=== PATIENT | male | born 1990 | race Caucasian/White ===

== ENCOUNTER 2024-01-31 11:32 | Emergency (ER) | payer BC, SELFPAY ==
[2024-01-31 11:49] VITALS: BP 144/94; PULSE 75; RESP 16; TEMP 36.5; O2SAT 99; BMI 40.4
--- NOTE | 2024-01-31 12:03 | CRLHL7_ITS ---
For Patients: As a result of the Cures Act, medical imaging exams and procedure reports are released immediately into your electronic medical record. You may view this report before your referring provider. If you have questions, please contact your health care provider. INDICATION: Back pain TECHNIQUE: Two views lumbar spine FINDINGS/IMPRESSION: Normal alignment. No acute fracture or acute osseous abnormalities are visualized. Normal height and alignment of the vertebral bodies no spondylolisthesis or spondylolysis. No significant degenerative change. Dictated by Jennifer Valdez MD @ 01/31/2024 1:12:43 PM (Electronically Signed)
--- NOTE | 2024-01-31 12:04 | ED_ITS ---
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 Radiates up to little bit and thoracic spine and up to her shoulder she reports. He is a non-insulin diabetic he is on Ozempic. He does not have a primary care doctor locally. He has had no fever chills weight loss. He has had a slight cough and runny nose, he was exposed to COVID. He is not short of breath. He denies night sweats rigors bowel or bladder incontinence or lower extremity symptoms. He has noticed no strength deficit in his legs. Related Data Previous Rx's ?Medication ?Instructions ?Recorded indomethacin 25 mg capsule 25 mg PO TID #20 caps 01/31/24 Allergies Allergy/AdvReac Type Severity Reaction Status Date / Time amoxicillin AdvReac Intermediate Hives Verified 01/31/24 11:49 erythromycin base AdvReac Intermediate Hives Verified 01/31/24 11:49 [From Pediazole] Penicillins AdvReac Intermediate Hives Verified 01/31/24 11:49 sulfisoxazole AdvReac Intermediate Hives Verified 01/31/24 11:49 [From Pediazole] cefaclor [From Ceclor] AdvReac Hives Verified 01/31/24 11:49 Review of Systems Status of ROS: Reports: 6 or more systems reviewed and unremarkable except as noted in History and below PFSH PFS Social History Smoking Status: Never smoker Do you use any of these nicotine containing products: Smokeless Tobacco How often do you have a drink containing alcohol: never AUDIT-C Alcohol total score: 0 Non-prescribed substance use: denies use Exam Narrative: Exam Narrative: Objective patient ambulates normally he has got an elevated BMI His back exam shows no warmth erythema, no tenderness to palpation. He denies any leg symptoms He is ambulatory without difficulty He describes some mild rhinorrhea. He denies significant coughing Const: Vital Signs, click to edit/add: Vital Signs - 24 hr 01/31/24 11:49 Temperature 97.7 F Pulse Rate [Pulse Oximeter] 75 Respiratory Rate 16 Blood Pressure [Ri ght Upper Arm] 144/94 H Pulse Oximetry 99 Oxygen Delivery Me thod Room Air Course Vital Signs Vital signs: Initial Vital Signs Temperature 97.7 F 01/31/24 11:49 Temperature Source Temporal Artery Scan 01/31/24 11:49 Pulse Rate 75 01/31/24 11:49 Respiratory Rate 16 01/31/24 11:49 Blood Pressure 144/94 H 01/31/24 11:49 Blood Pressure Mean 110 H 01/31/24 11:49 Blood Pressure Position Sitting 01/31/24 11:49 Pulse Oximetry 99 01/31/24 11:49 Oxygen Delivery Method Room Air 01/31/24 11:49 Vital Signs Temperature 97.7 F 01/31/24 11:49 Pulse Rate 75 01/31/24 11:49 Respiratory Rate 16 01/31/24 11:49 Blood Pressure 144/94 H 01/31/24 11:49 Pulse Oximetry 99 01/31/24 11:49 Oxygen Delivery Method Room Air 01/31/24 11:49 Temperature 97.7 F 01/31/24 11:49 Pulse Rate 75 01/31/24 11:49 Respiratory Rate 16 01/31/24 11:49 Blood Pressure 144/94 H 01/31/24 11:49 Pulse Oximetry 99 01/31/24 11:49 Oxygen Delivery Method Room Air 01/31/24 11:49 Medical Decision Making MDM Narrative Medical decision making narrative: 33-year-old male non-insulin diabetic with low back pain over a few weeks, no evidence of radicular symptoms. At this time I think a plain x-ray be helpful, referral to a primary care doctor to get into some physical therapy. He can take some anti-inflammatory medicine or Tylenol as needed, will also check a viral studies test of his nose given that he has been exposed to COVID. Review his x-rays return. Addendum 12:46 p.m.: The patient's x-ray by my review of his lumbar spine look largely unremarkable, has some facet arthropathy, got pretty good disc space preservation. Normal alignment. His viral studies are pending. I think we can discharge him home on indomethacin 25 mg t.i.d. over the next 7 days. Cautioned about GI side effects, to take with meals. Would recommend he get an appointment with a primary care doctor locally to get into fits some physical therapy. He was comfortable this would also recommend icing on his back perhaps 5-10 minutes 3 to 5 times a day. Lab Data Labs: Lab Results 01/31/24 Range/Units 12:10 SARS-CoV-2 (PCR) Negative SARS-CoV-2 (Negative) Influenza Type A (PCR) Negative PCR FLU A (Negative) Influenza Type B (PCR) Negative PCR FLU B (Negative) RSV (PCR) Negative PCR RSV (Negative) Discharge Plan Discharge Clinical Impression: Strain of lumbar region, Rhinorrhea Patient Disposition: Home, Self-Care Condition: Stable Additional Instructions: Recommend no heavy lifting or repetitive bending, Indocin 25 t.i.d. x7 days, take with food, stop if it bothers her stomach. Recommend you see your regular doctor within the next few days to discuss physical therapy and other treatment modalities for your back. Return if problems or concerns. Please give the patient primary care's number at the clinic in [place]. Activity Level: Light activity Discharge Diet: Diabetic Prescriptions: New indomethacin 25 mg capsule 25 mg PO TID Qty: 20 0RF Rx Instructions: administer with food or milk Stand Alone Forms: [facility] Info Instructions
[2024-01-31 12:52] LABS: PCR FLU A Negative PCR FLU A (Negative); PCR FLU B Negative PCR FLU B (Negative); PCR RSV Negative PCR RSV (Negative); SARS PCR* Negative SARS-CoV-2 (Negative)
== END 2024-01-31 12:55 | disposition home or self-care (01) ==
PROVIDERS: Emergency Provider Family Medicine
DX: S39.012A Strain of muscle, fascia and tendon of lower back, initial encounter (principal); J34.89 Other specified disorders of nose and nasal sinuses
CPT/HCPCS: 72100; 87631; 99284

== ENCOUNTER 2024-04-08 12:47 | Outpatient (CLI) | payer BC, SELFPAY ==
--- NOTE | 2024-04-08 13:00 | CRLHL7_ITS ---
For Patients: As a result of the Century Cures Act, medical imaging exams and procedure reports are released immediately into your electronic medical record. You may view this report before your referring provider. If you have questions, please contact your health care provider. INDICATION: Mid back pain. Lifting weights. TECHNIQUE: Sagittal T1 sagittal and axial T2 and sagittal STIR images were obtained. FINDINGS: Sagittal alignment within normal limits. No evidence of acute compression fracture. Alignment is normal. Shallow posterior disc bulges/protrusions are noted at the T2-3 and T3-4 levels. There is associated mild ventral thecal sac deformity without compression of the spinal cord nor stenosis of the spinal canal or neural foramen. Small incidental osseous hemangioma at T6 as doubtful significance. Thoracic spinal cord normal in morphology and signal intensity. No paraspinal or epidural hematoma. IMPRESSION: Mild posterior disc bulges/protrusions in the upper thoracic spine without central or lateral stenosis. Dictated by Wellington Strong MD @ 04/10/2024 6:51:45 AM (Electronically Signed)
--- NOTE | 2024-04-08 13:45 | CRLHL7_ITS ---
For Patients: As a result of the Cures Act, medical imaging exams and procedure reports are released immediately into your electronic medical record. You may view this report before your referring provider. If you have questions, please contact your health care provider. INDICATION: Low back pain. TECHNIQUE: Sagittal and axial T1, sagittal axial T2 sagittal STIR images. COMPARISON: Lumbar spine radiographs dated 01/23/2024. FINDINGS: Sagittal alignment within normal limits. L5 is a transitional segment partially sacralized on right no acute compression fracture. No paraspinal or epidural hematoma. At L1-2 shallow left paracentral posterior disc protrusion causes mild thecal sac deformity without impingement of the conus medullaris slight displacement of traversing left L2 nerve root. The neural foramen adequately patent. At L2-3 normal disc height and disc hydration without disc herniation or stenosis. At L3-4 degenerative disc desiccation. Shallow right paracentral disc protrusion causes mild thecal sac deformity without stenosis of the spinal canal or neural foramen. At L4-5 degenerative disc desiccation. Shallow central posterior disc protrusion extends to the right of midline there is deformity of the thecal sac slight displacement of traversing right greater than left L5 nerve roots. Neural foramen are adequately patent. At L5-S1 degenerative disc desiccation shallow central disc protrusion indents ventral epidural fat and contacts but does not compress the traversing S1 nerve roots the neural foramen are adequately patent. IMPRESSION: 1. Multilevel lumbar disc degeneration as described in detail above. Transitional lumbosacral segment (L5) partially sacralized on the right. 2. At L4-5, shallow central disc protrusion with slight displacement of traversing right greater than left L5 nerve roots. 3. Smaller disc protrusions also noted at L5-S1, L3-4 and L1-2 without stenosis. Dictated by Wellington Strong MD @ 04/10/2024 6:57:18 AM (Electronically Signed)
== END 2024-04-08 12:48 | disposition home or self-care (01) ==
LOC: MRI 12:48
PROVIDERS: PCP Internal Medicine; Visit Provider Internal Medicine
DX: M54.9 Dorsalgia, unspecified (principal); M51.24 Other intervertebral disc displacement, thoracic region; M51.369 Other intervertebral disc degeneration, lumbar region without mention of lumbar back pain or lower extremity pain; M51.26 Other intervertebral disc displacement, lumbar region; S39.92XA Unspecified injury of lower back, initial encounter
CPT/HCPCS: 72146; 72148

== ENCOUNTER 2024-05-22 11:07 | Emergency (ER) | payer BC, SELFPAY ==
--- OUTSIDE RECORDS SUMMARY | 2024-05-22 11:09 | XMS_ITS | Clinical Summary ---
Author Organization [facility] Address [place], [place] [address] Care Team Providers Care Home Health Clinical Supervisor Name Role Phone Nitesh Snider MD Primary Care Provider [phone] Allergies Active Allergy Reactions Criticality Noted Date Comments Amoxicillin Rash 07/29/2005 Cefaclor Hives 07/29/2005 Erythromycin-Sulfisoxazole Rash 6 Penicillins Rash 07/29/2005 Medications FLUOXETINE 20 MG CAP 20 mg Oral EVERY MORNING 30 0 08/02/2005 Active FLUOXETINE 20 MG CAP take 1 capsule (20mg) by oral route once daily in the morning 30 0 08/02/2005 Active Social History Tobacco Use Types Packs/Day Years Used Date Smoking Tobacco: Never Assessed Sex and Gender Information Value Date Recorded Sex Assigned at Not on file Legal Sex Male 7:13 AM RESPIRATORY MANAGER Gender Identity Not on file Sexual Orientation Not on file Obstetrics History Last Filed Vital Signs Vital Sign Reading Time Taken Comments Blood Pressure 131/61 08/02/2005 5:00 PM RESPIRATORY MANAGER Pulse 80 08/02/2005 5:00 PM RESPIRATORY MANAGER Temperature 36.5 C (97.7 F) 08/02/2005 5:00 PM RESPIRATORY MANAGER Respiratory Rate 20 07/30/2005 5:00 AM RESPIRATORY MANAGER Oxygen Saturation - - Inhaled Oxygen Concentration - - Weight 161 kg (355 lb) 07/29/2005 7:56 PM RESPIRATORY MANAGER Height 198.1 cm (6' 6) 07/29/2005 7:56 PM RESPIRATORY MANAGER Body Mass Index 41.02 07/29/2005 7:56 PM RESPIRATORY MANAGER Plan of Treatment Upcoming Encounters Date Type Department Care Team (Late st Contact Info) Description 07/08/2024 3:00 PM RESPIRATORY MANAGER Office Visit [address] [place] [address] Luis Davidson MD [address] [place] [address] Health Maintenance Due Date Last Done Comments Tdap 12/07/1999 Depression screening for age 12+ 2000 HIV for age 15-65 12/07/2003 BMI (ht and wt on same day) for age 18+ 2006 Hepatitis C screening for ag e 18-79 2006 Tetanus booster 2008 Lipids for age 35-44 12/07/2023 COVID-19 vaccine series (2023- season) 2024 Influenza for age 9-49 01/04/2024 Pneumococcal series for age 6-49 Aged Out No longer eligible based on patient's age to complete this topic Insurance [employer] [place] [employer] [place] Advance Directives * Full Code (Latest Code Status on File) Date Activated Date Inactivated Comments 07/29/2005 8:26 PM 08/02/2005 7:24 PM Care Teams Home Health Clinical Supervisor Relationship Specialty Start Date End Date Nitesh Snider MD [address] [place] [address] PCP - General Internal Medicine 04/14/24
[2024-05-22 11:11] VITALS: BP 132/79; PULSE 76; RESP 18; TEMP 36.6; O2SAT 96; BMI 40.8
--- NOTE | 2024-05-22 11:21 | ED_ITS ---
HPI - Back Pain/Injury General Chief Complaint: Back Injury/Pain Stated Complaint: Back pain Time Seen by Provider: 05/22/24 11:08 History of Present Illness HPI Narrative: Patient is a 33-year-old gentleman who is my primary care patient comes emergency room today with back pain. He has had chronic back pain and he has seen the back clinic and recently had an MRI of both his thoracic and lumbar spine. He has mild multilevel disease which is been chronic and fairly stable. He does well with his physical therapy but is not able to keep up with the pain currently on Tylenol and Motrin. He does have diabetes which is reasonably well controlled. He has had no chest pain no shortness a breath orthopnea no PND no bowel or bladder symptoms. The pain is in the upper thoracic region where it has been previously as well as in the low lumbar region. No radiculopathy noted no muscle weakness. Related Data Previous Rx's ?Medication ?Instructions ?Recorded bupropion HCl 300 mg 24 hr tablet, 300 mg PO QAM #90 tabs 02/11/24 extended release (Wellbutrin XL) escitalopram oxalate 20 mg tablet 20 mg PO QDAY #90 tabs 02/11/24 lisinopril 10 mg tablet 10 mg PO QDAY #90 tabs 02/11/24 semaglutide 1 mg/dose (4 mg/3 mL) 1 mg (0.75 mL) subcut QWEEK #3 mL 02/25/24 subcutaneous pen injector (Ozempic) hydrocodone 5 mg-acetaminophen 325 1 tab PO Q8H PRN pain #30 tabs 05/22/24 mg tablet prednisone 20 mg tablet 20 mg PO BID #10 tabs 05/22/24 Allergies Allergy/AdvReac Type Severity Reaction Status Date / Time amoxicillin AdvReac Intermediate Hives Verified 05/22/24 11:11 erythromycin base (From AdvReac Intermediate Hives Verified 05/22/24 11:11 Pediazole) Penicillins AdvReac Intermediate Hives Verified 05/22/24 11:11 sulfisoxazole (From AdvReac Intermediate Hives Verified 05/22/24 11:11 Pediazole) cefaclor (From Ceclor) AdvReac Hives Verified 05/22/24 11:11 Review of Systems Status of ROS: Reports: 10 or more systems reviewed and unremarkable except as noted in History and below PFSH [facility] Medical History Diabetes mellitus ?E11.9 - Type 2 diabetes mellitus without complications (ICD-10) Back injury ?S39.92XA - Unspecified injury of lower back, initial encounter (ICD-10) Social History What is your current living situation?: I presently have a place to live Problems where you live: no known problems In past 12 months, lack of transportation kept you from medical appts, meetings, work, or getting things needed for daily living: no In the past 12 mos, have been you worried that your food would run out before you had money to buy more?: sometimes true In the past 12 mos, the food you bought just didn't last and you didn't have money to buy more?: sometimes true Smoking Status: Never smoker Do you use any of these nicotine containing products: Smokeless Tobacco How often do you have a drink containing alcohol: never AUDIT-C Alcohol total score: 0 Non-prescribed substance use: denies use How often does anyone, including family, friends and others, physically hurt you : never How often does anyone, including family, friends and others, insult or talk down to you: never How often does anyone, including family, friends and others, threaten you with harm: never How often does anyone, including family, friends and others, scream or curse at you: never Health Related Social Needs: food insecurity (Z59.41) Exam Narrative: Exam Narrative: EXAM GENERAL: Patient appears comfortable and well. EYES: No scleral icterus. ENT: Tympanic membranes and oropharynx normal. THYROID: no thyroid nodules or thyromegaly. LYMPH: No supraclavicular or cervical lymphadenopathy. SKIN: Visible skin seen during exam normal or with benign process only. EXT: No dependent lower extremity pedal edema. HEART: Regular rate and rhythm with no murmurs, rubs, or gallops. LUNGS: Clear to auscultation bilaterally with no crackles or wheezes. ABD: Soft, non tender, non distended. PSYCH: Good eye contact, speech is not pressured. No bony abnormalities normal range of motion. Const: Vital Signs, click to edit/add: Vital Signs - 24 hr 05/22/24 11:11 Temperature 97.8 F Pulse Rate [Pulse Oximeter] 76 Respiratory Rate 18 Blood Pressure [Ri ght Upper Arm] 132/79 Pulse Oximetry 96 Oxygen Delivery Me thod Room Air Course Course ED Course: Patient seen and examined. Patient is well known to me as he is my primary care patient. I did review his MRI and at this time I did repeat a course of prednisone as well as Vicodin and he will be in close follow-up with me in the office. I have made arrangements to send him to [facility] as well. Vital Signs Vital signs: Initial Vital Signs Temperature 97.8 F 05/22/24 11:11 Temperature Source Temporal Artery Scan 05/22/24 11:11 Pulse Rate 76 05/22/24 11:11 Respiratory Rate 18 05/22/24 11:11 Blood Pressure 132/79 05/22/24 11:11 Blood Pressure Mean 96 05/22/24 11:11 Blood Pressure Position Sitting 05/22/24 11:11 Pulse Oximetry 96 05/22/24 11:11 Oxygen Delivery Method Room Air 05/22/24 11:11 Vital Signs Temperature 97.8 F 05/22/24 11:11 Pulse Rate 76 05/22/24 11:11 Respiratory Rate 18 05/22/24 11:11 Blood Pressure 132/79 05/22/24 11:11 Pulse Oximetry 96 05/22/24 11:11 Oxygen Delivery Method Room Air 05/22/24 11:11 Temperature 97.8 F 05/22/24 11:11 Pulse Rate 76 05/22/24 11:11 Respiratory Rate 18 05/22/24 11:11 Blood Pressure 132/79 05/22/24 11:11 Pulse Oximetry 96 05/22/24 11:11 Oxygen Delivery Method Room Air 05/22/24 11:11 Discharge Plan Discharge Clinical Impression: Back pain Patient Disposition: Home, Self-Care Condition: Stable Instructions: Back Pain (ED) Additional Instructions: Ice Prednisone as directed [place] as directed Advanced activity as directed Follow-up Dr. Snider by phone this coming week. Activity Level: No Restrictions Discharge Diet: Regular Prescriptions: New prednisone 20 mg tablet 20 mg PO BID Qty: 10 0RF hydrocodone-acetaminophen 5-325 mg tablet 1 tab PO Q8H PRN (Reason: pain) Qty: 30 0RF No Action escitalopram oxalate 20 mg tablet 20 mg PO QDAY Qty: 90 0RF lisinopril 10 mg tablet 10 mg PO QDAY Qty: 90 0RF bupropion HCl [Wellbutrin XL] 300 mg tablet extended release 24 hr 300 mg PO QAM Qty: 90 0RF Ozempic 1 mg/dose (4 mg/3 mL) pen injector 1 mg subcut QWEEK Qty: 3 0RF Follow Up/Referrals: Nitesh Snider MD [Primary Care Provider] - Stand Alone [facility]: [facility] Info Instructions
--- OUTSIDE RECORDS SUMMARY | 2024-05-22 11:35 | XMS_ITS | Continuity of Care Document ---
Author Name [email or web address] Address Unknown Organization Unknown Address Unknown Procedures FILTER APPLIED:Only known Procedures with Onset Date within the last 5 years Procedure Date Procedure Provider Additional Inform ation Status MI OFFICE/OUTPATIENT ESTABLISHED LOW MDM 20-29 MIN ([id number]) Completed Encounters FILTER APPLIED:Only known Encounters with Admission Date within the last 5 years Encounter Location Admission Discharge Billing Code [place] Department Supervisor Sergei joe Outpatient [facility] Outpatient [facility]
--- OUTSIDE RECORDS SUMMARY | 2024-05-22 11:35 | XMS_ITS | Clinical Summary ---
Author Organization [facility] Address [place], [place] [address] Care Team Providers Care Psychology Associate Name Role Phone Nitesh Snider MD Primary Care Provider Allergies Active Allergy Reactions Criticality Noted Date [...] on file Legal Sex Male 7:13 AM SUBMARINE OPERATOR Gender Identity Not on file Sexual Orientation Not on file Obstetrics History Last Filed Vital Signs Vital Sign Reading Time Taken Comments Blood Pressure 131/61 08/02/2005 5:00 PM SUBMARINE OPERATOR Pulse 80 08/02/2005 5:00 PM SUBMARINE OPERATOR Temperature 36.5 C (97.7 F) 08/02/2005 5:00 PM SUBMARINE OPERATOR Respiratory Rate 20 07/30/2005 5:00 AM SUBMARINE OPERATOR Oxygen Saturation - - Inhaled Oxygen Concentration - - Weight 161 kg (355 lb) 07/29/2005 7:56 PM SUBMARINE OPERATOR Height 198.1 cm (6' 6) 07/29/2005 7:56 PM SUBMARINE OPERATOR Body Mass Index 41.02 07/29/2005 7:56 PM SUBMARINE OPERATOR Plan of Treatment Upcoming Encounters Date Type Department Care Team (Late st Contact Info) Description 07/08/2024 3:00 PM SUBMARINE OPERATOR Office Visit [address] [place] [address] Luis Davidson MD [address] [place] [address] Health Maintenance Due Date Last Done Comments [...] patient's age to complete this topic Insurance [employer] [place] [employer] [place] Advance Directives * Full Code (Latest Code Status on File) Date Activated Date Inactivated Comments 07/29/2005 8:26 PM 08/02/2005 7:24 PM Care Teams Psychology Associate Relationship Specialty Start Date End Date Nitesh Snider MD [address] [place] [address] PCP - General Internal Medicine 04/14/24
== END 2024-05-22 11:47 | disposition home or self-care (01) ==
LOC: ED 11:33
PROVIDERS: Emergency Provider Internal Medicine; PCP Internal Medicine
DX: M54.9 Dorsalgia, unspecified (principal)
CPT/HCPCS: 99283; 99284

== ENCOUNTER 2024-06-02 10:15 | Outpatient (RCR) | payer BC, SELFPAY | END 2024-08-09 14:07 | disposition home or self-care (01) | PROVIDERS: Visit Provider Internal Medicine | DX: S39.92XA Unspecified injury of lower back, initial encounter (principal); M54.50 Low back pain, unspecified; Z74.09 Other reduced mobility; M62.81 Muscle weakness (generalized); R29.3 Abnormal posture; Z51.89 Encounter for other specified aftercare | CPT/HCPCS: 97012; 97032; 97110; 97112; 97140; 97162; 97530 ==

== ENCOUNTER 2024-08-06 12:06 | Emergency (ER) | payer BC, SELFPAY ==
--- OUTSIDE RECORDS SUMMARY | 2024-08-06 12:08 | XMS_ITS | Clinical Summary ---
Author Organization [facility] Address [address] [place] [id number] Care Team Providers Care Levi Maker Name Role Phone Nitesh Snider MD Primary Care Provider [phone] Allergies Active Allergy Reactions Criticality Noted Date [...] on file Legal Sex Male 7:13 AM RETORT CONDENSER ATTENDANT Gender Identity Not on file Sexual Orientation Not on file Obstetrics History Last Filed Vital Signs Vital Sign Reading Time Taken Comments Blood Pressure 131/61 08/02/2005 5:00 PM RETORT CONDENSER ATTENDANT Pulse 80 08/02/2005 5:00 PM RETORT CONDENSER ATTENDANT Temperature 36.5 C (97.7 F) 08/02/2005 5:00 PM RETORT CONDENSER ATTENDANT Respiratory Rate 20 07/30/2005 5:00 AM RETORT CONDENSER ATTENDANT Oxygen Saturation - - Inhaled Oxygen Concentration - - Weight 161 kg (355 lb) 07/29/2005 7:56 PM RETORT CONDENSER ATTENDANT Height 198.1 cm (6' 6) 07/29/2005 7:56 PM RETORT CONDENSER ATTENDANT Body Mass Index 41.02 07/29/2005 7:56 PM RETORT CONDENSER ATTENDANT Plan of Treatment Health Maintenance Due Date Last Done Comments Tdap 12/07/1999 Depression screening for age 12+ 2000 HIV for age 15-65 12/07/2003 BMI (ht and wt on same day) for age 18+ 2006 Hepatitis C screening for ag e 18-79 2006 Tetanus booster 2008 Lipids for age 35-44 12/07/2023 COVID-19 vaccine series (2023- season) 2024 Influenza Vaccine (Season Ended) 2025 Pneumococcal series for age 6-49 Aged Out No longer eligible based on patient's age to complete this topic Insurance [employer] OF [place] [employer] OF [place] Advance Directives * Full Code (Latest Code Status on File) Date Activated Date Inactivated Comments 07/29/2005 8:26 PM 08/02/2005 7:24 PM Care Teams Levi Maker Relationship Specialty Start Date End Date Nitesh Snider MD [address] [place] [id number] PCP - General Internal Medicine 04/14/24
[2024-08-06 12:24] VITALS: BP 117/84; PULSE 113; RESP 18; TEMP 36.3; O2SAT 100; BMI 40.4
--- NOTE | 2024-08-06 12:36 | ED.GENADULT ---
HPI - General Adult General Chief complaint: Psychiatric Problem/Disorder <Nitesh Snider MD - Last Filed: 08/07/24 19:53> Stated complaint: Mental health <Nitesh Snider MD - Last Filed: 08/07/24 19:53> Time Seen by Provider: 08/06/24 12:12 <Nitesh Snider MD - Last Filed: 08/07/24 19:53> History of Present Illness HPI narrative: Patient is a 33-year-old gentleman well known to me who comes in today with several days of suicidal ideation. Patient has had history of suicidal ideation. He is not willing to share is planned. He has not been drinking or using any drugs. Patient has diabetes and is under reasonable control. He has had no recent injuries no head injuries no fevers no chills no chest pain no shortness of breath. He has not lost his job and his family status is unchanged. Patient otherwise has been in his usual state of health. He does not feel comfortable being at home as he feels like he has a risk to himself. <Nitesh Snider MD - Last Filed: 08/07/24 19:53> Related Data Home medications: Previous Rx's ?Medication ?Instructions ?Recorded bupropion HCl 300 mg 24 hr tablet, 300 mg PO QAM #90 tabs 02/11/24 extended release (Wellbutrin XL) hydrocodone 5 mg-acetaminophen 325 1 tab PO Q8H PRN pain #30 tabs 05/22/24 mg tablet prednisone 20 mg tablet 20 mg PO BID #10 tabs 05/22/24 escitalopram oxalate 20 mg tablet 20 mg PO QDAY #90 tabs 07/30/24 lisinopril 10 mg tablet 10 mg PO QDAY #90 tabs 07/30/24 semaglutide 1 mg/dose (4 mg/3 mL) 1 mg (0.75 mL) subcut QWEEK #3 mL 08/04/24 subcutaneous pen injector (Ozempic) <Nitesh Snider MD - Last Filed: 08/07/24 19:53> Allergies/adverse reactions: Allergies Allergy/AdvReac Type Severity Reaction Status Date / Time amoxicillin AdvReac Intermediate Hives Verified 05/22/24 11:36 erythromycin base (From AdvReac Intermediate Hives Verified 05/22/24 11:36 Pediazole) Penicillins AdvReac Intermediate Hives Verified 05/22/24 11:36 sulfisoxazole (From AdvReac Intermediate Hives Verified 05/22/24 11:36 Pediazole) cefaclor (From Ceclor) AdvReac Hives Verified 05/22/24 11:36 <Nitesh Snider MD - Last Filed: 08/07/24 19:53> Review of Systems Status of ROS: Reports: 10 or more systems reviewed and unremarkable except as noted in History and below <Nitesh Snider MD - Last Filed: 08/07/24 19:53> [facility] Medical History: Medical History Diabetes mellitus ?E11.9 - Type 2 diabetes mellitus without complications (ICD-10) Back injury ?S39.92XA - Unspecified injury of lower back, initial encounter (ICD-10) <Nitesh Snider MD - Last Filed: 08/07/24 19:53> Social History: Social History What is your current living situation?: I presently have a place to live Problems where you live: no known problems In past 12 months, lack of transportation kept you from medical appts, meetings, work, or getting things needed for daily living: no In the past 12 mos, have been you worried that your food would run out before you had money to buy more?: sometimes true In the past 12 mos, the food you bought just didn't last and you didn't have money to buy more?: sometimes true Smoking Status: Never smoker Do you use any of these nicotine containing products: Smokeless Tobacco Second hand tobacco smoke exposure: No How often do you have a drink containing alcohol: never AUDIT-C Alcohol total score: 0 Non-prescribed substance use: denies use How often does anyone, including family, friends and others, physically hurt you: never How often does anyone, including family, friends and others, insult or talk down to you: never How often does anyone, including family, friends and others, threaten you with harm: never How often does anyone, including family, friends and others, scream or curse at you: never Health Related Social Needs: food insecurity (Z59.41) <Nitesh Snider MD - Last Filed: 08/07/24 19:53> Exam Narrative: Exam Narrative: EXAM GENERAL: Patient appears tearful. EYES: No scleral icterus. ENT: Tympanic membranes and oropharynx normal. THYROID: no thyroid nodules or thyromegaly. LYMPH: No supraclavicular or cervical lymphadenopathy. SKIN: Visible skin seen during exam normal or with benign process only. EXT: No dependent lower extremity pedal edema. HEART: Regular rate and rhythm with no murmurs, rubs, or gallops. LUNGS: Clear to auscultation bilaterally with no crackles or wheezes. ABD: Soft, non tender, non distended. PSYCH: Good eye contact, speech is not pressured. <Nitesh Snider MD - Last Filed: 08/07/24 19:53> Const: Vital Signs, click to edit/add: Vital Signs - 24 hr 08/06/24 12:24 08/06/24 15:03 Temperature 97.3 F L 98.0 F Pulse Rate [Pulse Oximeter] 113 H 75 Respiratory Rate 18 16 Blood Pressure [Ri ght Upper Arm] 117/84 141/99 H Pulse Oximetry 100 98 Oxygen Delivery Me thod Room Air Room Air <Nitesh Snider MD - Last Filed: 08/07/24 19:53> Vital Signs, click to edit/add: Vital Signs - 24 hr 08/06/24 12:24 08/06/24 15:03 Temperature 97.3 F L 98.0 F Pulse Rate [Pulse Oximeter] 113 H 75 Respiratory Rate 18 16 Blood Pressure [Ri ght Upper Arm] 117/84 141/99 H Pulse Oximetry 100 98 Oxygen Delivery Me thod Room Air Room Air <Daniel Jim MD - Last Filed: 08/06/24 16:58> Course Course ED Course: Patient seen and examined. Toxicology workup pending. Psychiatric consultation pending. <Nitesh Snider MD - Last Filed: 08/07/24 19:53> Reevaluation(s) Reevaluation #1: Patient seen by mental health and they do feel like admission to a psychiatric facility is appropriate. Waiting appropriate facility. <Nitesh Snider MD - Last Filed: 08/07/24 19:53> Time of Reevaluation #2: 16:56 <Daniel Jim MD - Last Filed: 08/06/24 16:58> Reevaluation #2: patient has been accepted at [facility], he will be placed on a transport hold as he is voluntary. He is medically cleared from this facility, <Daniel Jim MD - Last Filed: 08/06/24 16:58> Vital Signs Vital signs: Initial Vital Signs Temperature 97.3 F L 08/06/24 12:24 Temperature Source Temporal Artery Scan 08/06/24 12:24 Pulse Rate 113 H 08/06/24 12:24 Pulse Rhythm Regular 08/06/24 12:24 Respiratory Rate 18 08/06/24 12:24 Blood Pressure 117/84 08/06/24 12:24 Blood Pressure Mean 95 08/06/24 12:24 Blood Pressure Position Sitting 08/06/24 12:24 Pulse Oximetry 100 08/06/24 12:24 Oxygen Delivery Method Room Air 08/06/24 12:24 Vital Signs Temperature 97.3 F L 08/06/24 12:24 Pulse Rate 113 H 08/06/24 12:24 Respiratory Rate 18 08/06/24 12:24 Blood Pressure 117/84 08/06/24 12:24 Pulse Oximetry 100 08/06/24 12:24 Oxygen Delivery Method Room Air 08/06/24 12:24 Temperature 98.0 F 08/06/24 15:03 Pulse Rate 75 08/06/24 15:03 Respiratory Rate 16 08/06/24 15:03 Blood Pressure 141/99 H 08/06/24 15:03 Pulse Oximetry 98 08/06/24 15:03 Oxygen Delivery Method Room Air 08/06/24 15:03 <Nitesh Snider MD - Last Filed: 08/07/24 19:53> Initial Vital Signs Temperature 97.3 F L 08/06/24 12:24 Temperature Source Temporal Artery Scan 08/06/24 12:24 Pulse Rate 113 H 08/06/24 12:24 Pulse Rhythm Regular 08/06/24 12:24 Respiratory Rate 18 08/06/24 12:24 Blood Pressure 117/84 08/06/24 12:24 Blood Pressure Mean 95 08/06/24 12:24 Blood Pressure Position Sitting 08/06/24 12:24 Pulse Oximetry 100 08/06/24 12:24 Oxygen Delivery Method Room Air 08/06/24 12:24 Vital Signs Temperature 97.3 F L 08/06/24 12:24 Pulse Rate 113 H 08/06/24 12:24 Respiratory Rate 18 08/06/24 12:24 Blood Pressure 117/84 08/06/24 12:24 Pulse Oximetry 100 08/06/24 12:24 Oxygen Delivery Method Room Air 08/06/24 12:24 Temperature 98.0 F 08/06/24 15:03 Pulse Rate 75 08/06/24 15:03 Respiratory Rate 16 08/06/24 15:03 Blood Pressure 141/99 H 08/06/24 15:03 Pulse Oximetry 98 08/06/24 15:03 Oxygen Delivery Method Room Air 08/06/24 15:03 <Daniel Jim MD - Last Filed: 08/06/24 16:58> Medical Decision Making Lab Data Labs: Lab Results 08/06/24 08/06/24 08/06/24 Range/Units 12:46 13:40 16:07 WBC 9.28 (4.50-11.00) K/uL RBC 5.06 (4.30-5.90) m/uL Hgb 16.0 (13.5-17.5) gm/dL Hct 47.2 (37.0-53.0) % MCV 93 (80-100) fL MCH 32 (26-34) pg MCHC 34 (32-36) gm/dL RDW Coeff of Stevie 11.7 (11.5-15.5) % Plt Count 236 (140-440) K/uL Neut % (Auto) 59.9 (42.0-72.0) % Lymph % (Auto) 32.5 (20-44) % [place] % (Auto) 5.4 (0.0-11.0) % Eos % (Auto) 1.5 (0.0-7.0) % Baso % (Auto) 0.6 (0.0-3.0) % Neut # (Auto) 5.55 (1.7-7.0) K/uL Lymph # (Auto) 3.02 H (0.90-2.90) K/uL [place] # (Auto) 0.50 (0.00-0.90) K/UL Eos # (Auto) 0.14 (0.00-0.50) K/uL Baso # (Auto) 0.06 (0.00-0.30) K/uL Abs Immat Gran (auto) 0.01 (0.00-0.30) K/uL Imm/Tot Granulo (auto) 0.1 % Sodium 142 (135-149) mmol/L Potassium 4.6 (3.6-5.1) mmol/L Chloride 105 (96-114) mmol/L Carbon Dioxide 25 (20-32) mmol/L Anion Gap 12 (7-15) mEq/L BUN 21 (5-24) mg/dL Creatinine 0.9 (0.5-1.5) mg/dL Estimated Creat Clear 148.10 Estimated GFR 114 ml/min Glucose 148 H (60-115) mg/dL Hemoglobin A1c 6.1 H (0-5.6) % Calcium 9.6 (8.4-10.6) mg/dL Total Bilirubin 1.1 (0.1-1.5) mg/dL AST 35 (12-35) U/L ALT 37 (4-50) U/L Alkaline Phosphatase 51 (40-150) U/L Total Protein 7.8 (6.0-8.3) g/dL Albumin 4.8 (3.3-5.0) g/dL Salicylates < 1.0 L (1.0-10) mg/dL Urine Opiates Screen Negative (Negative) Ur Oxycodone Screen Negative (Negative) Urine Methadone Screen Negative (Negative) Acetaminophen < 10.0 (10.0-30.0) ug/mL Ur Barbiturates Screen Negative (Negative) U Tricyclic Antidepress Negative (Negative) Ur Phencyclidine Scrn Negative (Negative) Ur Amphetamines Screen Negative (Negative) U Methamphetamines Scrn Negative (Negative) U Benzodiazepines Scrn Negative (Negative) Urine Cocaine Screen Negative (Negative) U Marijuana (THC) Screen Negative (Negative) Ur Drug Screen Comment See Note Ethyl Alcohol < 0.01 (0.01-0.03) % Lab Acknowledgement Test Added <Nitesh Snider MD - Last Filed: 08/07/24 19:53> Lab Results 08/06/24 08/06/24 08/06/24 Range/Units 12:46 13:40 16:07 WBC 9.28 (4.50-11.00) K/uL RBC 5.06 (4.30-5.90) m/uL Hgb 16.0 (13.5-17.5) gm/dL Hct 47.2 (37.0-53.0) % MCV 93 (80-100) fL MCH 32 (26-34) pg MCHC 34 (32-36) gm/dL RDW Coeff of Stevie 11.7 (11.5-15.5) % Plt Count 236 (140-440) K/uL Neut % (Auto) 59.9 (42.0-72.0) % Lymph % (Auto) 32.5 (20-44) % [place] % (Auto) 5.4 (0.0-11.0) % Eos % (Auto) 1.5 (0.0-7.0) % Baso % (Auto) 0.6 (0.0-3.0) % Neut # (Auto) 5.55 (1.7-7.0) K/uL Lymph # (Auto) 3.02 H (0.90-2.90) K/uL [place] # (Auto) 0.50 (0.00-0.90) K/UL Eos # (Auto) 0.14 (0.00-0.50) K/uL Baso # (Auto) 0.06 (0.00-0.30) K/uL Abs Immat Gran (auto) 0.01 (0.00-0.30) K/uL Imm/Tot Granulo (auto) 0.1 % Sodium 142 (135-149) mmol/L Potassium 4.6 (3.6-5.1) mmol/L Chloride 105 (96-114) mmol/L Carbon Dioxide 25 (20-32) mmol/L Anion Gap 12 (7-15) mEq/L BUN 21 (5-24) mg/dL Creatinine 0.9 (0.5-1.5) mg/dL Estimated Creat Clear 148.10 Estimated GFR 114 ml/min Glucose 148 H (60-115) mg/dL Hemoglobin A1c 6.1 H (0-5.6) % Calcium 9.6 (8.4-10.6) mg/dL Total Bilirubin 1.1 (0.1-1.5) mg/dL AST 35 (12-35) U/L ALT 37 (4-50) U/L Alkaline Phosphatase 51 (40-150) U/L Total Protein 7.8 (6.0-8.3) g/dL Albumin 4.8 (3.3-5.0) g/dL Salicylates < 1.0 L (1.0-10) mg/dL Urine Opiates Screen Negative (Negative) Ur Oxycodone Screen Negative (Negative) Urine Methadone Screen Negative (Negative) Acetaminophen < 10.0 (10.0-30.0) ug/mL Ur Barbiturates Screen Negative (Negative) U Tricyclic Antidepress Negative (Negative) Ur Phencyclidine Scrn Negative (Negative) Ur Amphetamines Screen Negative (Negative) U Methamphetamines Scrn Negative (Negative) U Benzodiazepines Scrn Negative (Negative) Urine Cocaine Screen Negative (Negative) U Marijuana (THC) Screen Negative (Negative) Ur Drug Screen Comment See Note Ethyl Alcohol < 0.01 (0.01-0.03) % Lab Acknowledgement Test Added <Daniel Jim MD - Last Filed: 08/06/24 16:58> Discharge Plan Discharge Clinical Impression: Suicidal ideation, History of diabetes mellitus <Nitesh Snider MD - Last Filed: 08/07/24 19:53> Patient Disposition: [facility] <Nitesh Snider MD - Last Filed: 08/07/24 19:53> Condition: Stable <Nitesh Snider MD - Last Filed: 08/07/24 19:53> Instructions: Help Prevent Suicide (ED), Suicide Prevention (ED) <Nitesh Snider MD - Last Filed: 08/07/24 19:53> Additional Instructions: transfer to [facility], he has been accepted, he will be transported by EMS. <Nitesh Snider MD - Last Filed: 08/07/24 19:53> Activity Level: No Restrictions <Nitesh Snider MD - Last Filed: 08/07/24 19:53> No Restrictions <Daniel Jim MD - Last Filed: 08/06/24 16:58> Prescriptions: No Action bupropion HCl [Wellbutrin XL] 300 mg tablet extended release 24 hr 300 mg PO QAM Qty: 90 0RF prednisone 20 mg tablet 20 mg PO BID Qty: 10 0RF hydrocodone-acetaminophen 5-325 mg tablet 1 tab PO Q8H PRN (Reason: pain) Qty: 30 0RF escitalopram oxalate 20 mg tablet 20 mg PO QDAY Qty: 90 0RF lisinopril 10 mg tablet 10 mg PO QDAY Qty: 90 0RF Ozempic 1 mg/dose (4 mg/3 mL) pen injector 1 mg subcut QWEEK Qty: 3 0RF <Nitesh Snider MD - Last Filed: 08/07/24 19:53> Stand Alone Forms: MyHealth Info Instructions <Nitesh Snider MD - Last Filed: 08/07/24 19:53>
--- OUTSIDE RECORDS SUMMARY | 2024-08-06 12:41 | XMS_ITS | Clinical Summary ---
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 Gender Identity Not on file Sexual Orientation Not on file Obstetrics History Last Filed Vital Signs Vital Sign Reading Time Taken Comments Blood Pressure 131/61 08/02/2005 5:00 PM WEIGHT TRAINING INSTRUCTOR Pulse 80 08/02/2005 5:00 PM WEIGHT TRAINING INSTRUCTOR Temperature 36.5 C (97.7 F) 08/02/2005 5:00 PM WEIGHT TRAINING INSTRUCTOR Respiratory Rate 20 07/30/2005 5:00 AM WEIGHT TRAINING INSTRUCTOR Oxygen Saturation - - Inhaled Oxygen Concentration - - Weight 161 kg (355 lb) 07/29/2005 7:56 PM WEIGHT TRAINING INSTRUCTOR Height 198.1 cm (6' 6) 07/29/2005 7:56 PM WEIGHT TRAINING INSTRUCTOR Body Mass Index 41.02 07/29/2005 7:56 PM WEIGHT TRAINING INSTRUCTOR Plan of Treatment Health Maintenance Due Date [...] complete this topic Insurance BLUE CROSS OF NON-ID-ITS [facility] CROSS OF NON-ID-ITS Advance Directives * Full Code (Latest Code Status on File) Date Activated Date Inactivated Comments 07/29/2005 8:26 PM 08/02/2005 7:24 PM Care Teams Bander Relationship Specialty Start Date End Date Nitesh Snider MD [address] [place] [id number] PCP - General Internal Medicine 04/14/24
[2024-08-06 12:52] LABS: Basophils Absolute Auto 0.06 K/uL (0.00-0.30); Basophils Percent Auto 0.6 % (0.0-3.0); Eosinophils Absolute Auto 0.14 K/uL (0.00-0.50); Eosinophils Percent Auto 1.5 % (0.0-7.0); Hematocrit 47.2 % (37.0-53.0); Immature Granulocytes Abs Auto 0.01 K/uL (0.00-0.30); Immature Granulocytes Pct Auto 0.1 %; Lymphocytes Absolute Auto 3.02 K/uL (0.90-2.90); Lymphocytes Percent Auto 32.5 % (20-44); Mean Corpuscular HGB Conc 34 gm/dL (32-36); Mean Corpuscular Hemoglobin 32 pg (26-34); Mean Corpuscular Volume 93 fL (80-100); Monocytes Percent Auto 5.4 % (0.0-11.0); Neutrophils Absolute Auto 5.55 K/uL (1.7-7.0); Neutrophils Percent Auto 59.9 % (42.0-72.0); Platelet Count* 236 K/uL (140-440); RDW Coefficient of Variation % 11.7 % (11.5-15.5); Red Blood Count 5.06 m/uL (4.30-5.90); White Blood Count* 9.28 K/uL (4.50-11.00)
[2024-08-06 12:57] LABS: Slide Review Reflex No
[2024-08-06 13:17] LABS: Albumin* 4.8 g/dL (3.3-5.0); Chloride* 105 mmol/L (96-114)
[2024-08-06 13:18] LABS: Potassium* 4.6 mmol/L (3.6-5.1); Sodium* 142 mmol/L (135-149)
[2024-08-06 13:20] LABS: Alanine Aminotransferase* 37 U/L (4-50); Anion Gap 12 mEq/L (7-15); Aspartate Amino Transferase* 35 U/L (12-35); Blood Urea Nitrogen* 21 mg/dL (5-24); Carbon Dioxide* 25 mmol/L (20-32); Creatinine* 0.9 mg/dL (0.5-1.5); Estimated Glomerular Filt Rate 114 ml/min; Total Protein* 7.8 g/dL (6.0-8.3)
[2024-08-06 13:21] LABS: Alkaline Phosphatase* 51 U/L (40-150); Bilirubin Total* 1.1 mg/dL (0.1-1.5); Calcium* 9.6 mg/dL (8.4-10.6); Glucose* 148 mg/dL (60-115)
[2024-08-06 13:22] LABS: Acetaminophen* < 10.0 ug/mL (10.0-30.0); Ethanol* < 0.01 % (0.01-0.03); Salicylate* < 1.0 mg/dL (1.0-10)
[2024-08-06 14:11] LABS: Amphetamine Screen Urine Negative (Negative); Barbiturate Screen Urine Negative (Negative); Benzodiazepines Screen Urine Negative (Negative); Cannabinoid Screen Urine Negative (Negative); Cocaine Screen Urine Negative (Negative); Methadone Screen Urine Negative (Negative); Methamphetamines Screen Urine Negative (Negative); Opiate Screen Urine Negative (Negative); Oxycodone Screen Urine Negative (Negative); Phencyclidine Screen Urine Negative (Negative); Tricyclic Antidepressant Urine Negative (Negative)
[2024-08-06 15:03] VITALS: BP 141/99; PULSE 75; RESP 16; TEMP 36.7; O2SAT 98
[2024-08-06 16:31] LABS: Hemoglobin A1C* 6.1 % (0-5.6)
== END 2024-08-06 17:29 ==
PROVIDERS: Family Medicine; Emergency Provider Internal Medicine; PCP Internal Medicine
DX: R45.851 Suicidal ideations (principal)
CPT/HCPCS: 36415; 80053; 80143; 80179; 80306; 82077; 83036; 85025; 99283; 99285

== ENCOUNTER 2024-08-06 17:31 | Outpatient (CLI) | payer BC, SELFPAY | END 2024-08-06 17:32 | disposition home or self-care (01) | LOC: AMB 08-09 09:08 | PROVIDERS: PCP Internal Medicine; Visit Provider Family Medicine | DX: R45.851 Suicidal ideations (principal) | CPT/HCPCS: A0425; A0429 ==

== ENCOUNTER 2024-08-18 14:16 | Outpatient (CLI) | payer BC, SELFPAY | END 2024-08-18 14:17 | disposition home or self-care (01) | PROVIDERS: PCP Internal Medicine; Visit Provider Internal Medicine | DX: E11.9 Type 2 diabetes mellitus without complications (principal); Z79.85 Long-term (current) use of injectable non-insulin antidiabetic drugs; Z13.6 Encounter for screening for cardiovascular disorders | CPT/HCPCS: 80061; 82043; 82570 ==

== ENCOUNTER 2024-10-04 09:54 | Emergency (ER) | payer BC, SELFPAY ==
--- OUTSIDE RECORDS SUMMARY | 2024-10-04 09:56 | XMS_ITS | Encounter Summary ---
Author Organization [facility] Address [address] [place] [address] Care Team Providers Care Marketing And Public Relations Manager Name Role Phone Elsewhere, Pcp Primary Care Provider Unavailabl e Encounter Details Date Type Department Care Team (Latest Contact Info) Description 08/06/2024 Intake [facility] Social History Tobacco Use Types Packs/Day Years Used Date Smoking Tobacco: Former Cigarettes Passive Smoke Exposure: Past Smokeless Tobacco: Current Chew [facility] Utilities Answer Date Recorded In the past 12 months has [facility] [employer], gas, oil, or water [email or web address] threatened to shut off services in your home? No 08/09/2024 Humiliation, Afraid, Rape, and Kick questionnair e Answer Date Recorded Within the last year, have y ou been afraid of your partner or ex-partner? No 08/09/2024 Within the last year, have y ou been humiliated or emotionally abused in other ways by your partner or ex-partner? No Within the last year, have y ou been kicked, hit, slapped, or otherwise physically hurt by your partner or ex-partner? No 08/09/2024 Within the last year, have y ou been raped or forced to have any kind of sexual activity by your partner or ex-partner? No 08/09/2024 PHQ-2 Answer Date Recorded PHQ-2 Score 5 08/06/2024 Hunger Vital Sign Answer Date Recorded Within the past 12 months, y ou worried that your food would run out before you got the money to buy more. Never true 08/10/19 25 Within the past 12 months, t he food you bought just didn't last and you didn't have money to get more. Never true 08/09/2024 PRAPARE - Transportation Answer Date Re corded In the past 12 months, has l ack of transportation kept you from medical appointments or from getting medications? No 11/2024 In the past 12 months, has l ack of transportation kept you from meetings, work, or from getting things needed for daily living? No 08/09/2024 Depression Answer Date Recor ded PHQ-9 Total Score (max 27) 22 08/06 Dental Answer Date Recorded Dental: Regular Dentist Unknown 08/07/19 Housing Stability Answer Date Recorded What is your living situation today? I have a [facility] place to live 08/09/2024 Sex and Gender Information Value Date Recorded Sex Assigned at Not on file Legal Sex Male 3:14 PM CDT Gender Identity Not on file Sexual Orientation Not on file documented as of this encounter Last Filed Vital Signs Vital Sign Reading Time Taken Comments Blood Pressure 117/84 08/06/2024 3:23 PM CDT Pulse 113 08/06/2024 3:23 PM CDT Temperature 36.3 C (97.3 F) 08/06/2024 3:23 PM CDT Respiratory Rate 18 08/06/2024 3:23 PM CDT Oxygen Saturation 100% 08/06/2024 3:23 PM CDT Inhaled Oxygen Concentration - - Weight - - Height - - Body Mass Index - - documented in this encounter Plan of Treatment Not on file documented as of this encounter Visit Diagnoses Not on filedocumented in this encounter Additional Health Concerns Infection Onset Date Last Indicated Resolved Time COVID19 Pending 08/07/2024 08/07/2024 08/07/2024 5 :30 PM CDT Assessment Noted Time PHQ-9 Depression Total Score: 22 025 10:00 PM CDT documented as of this encounter Care Teams Marketing And Public Relations Manager Relationship Specialty Start Date End Date Elsewhere, Pcp PCP - General Internal Medicine 08/08/24 documented as of this encounter
--- OUTSIDE RECORDS SUMMARY | 2024-10-04 09:56 | XMS_ITS | Patient Health Record ---
Author Organization [facility] Address [address] [place] [address] Support Name Relationship Address Phone Bird Browning Guarantor Unknown [phone] Reason For Referral No Information Plan Of Treatment No Information Insurance Providers Payer Name Payer Address Payer Phone Subscriber Number Group Number Insured Name Patient Relationship to Insured Coverage Start Date Coverage End Date [facility] [address] [address] [place] [address] [id number] Bird Christopher Child - Insured has Financial Responsibility
--- OUTSIDE RECORDS SUMMARY | 2024-10-04 09:56 | XMS_ITS | Clinical Summary ---
Author Organization [facility] Address [address] [place] [address] Care Team Providers Care Ship'S Master Name Role Phone Nitesh Snider MD Primary Care Provider [phone] Allergies Active Allergy Reactions Criticality Noted Date [...] on file Legal Sex Male 7:13 AM ELECTRONIC RESOURCES LIBRARIAN Gender Identity Not on file Sexual Orientation Not on file Obstetrics History Last Filed Vital Signs Vital Sign Reading Time Taken Comments Blood Pressure 131/61 08/02/2005 5:00 PM ELECTRONIC RESOURCES LIBRARIAN Pulse 80 08/02/2005 5:00 PM ELECTRONIC RESOURCES LIBRARIAN Temperature 36.5 C (97.7 F) 08/02/2005 5:00 PM ELECTRONIC RESOURCES LIBRARIAN Respiratory Rate 20 07/30/2005 5:00 AM ELECTRONIC RESOURCES LIBRARIAN Oxygen Saturation - - Inhaled Oxygen Concentration - - Weight 161 kg (355 lb) 07/29/2005 7:56 PM ELECTRONIC RESOURCES LIBRARIAN Height 198.1 cm (6' 6) 07/29/2005 7:56 PM ELECTRONIC RESOURCES LIBRARIAN Body Mass Index 41.02 07/29/2005 7:56 PM ELECTRONIC RESOURCES LIBRARIAN Plan of Treatment Health Maintenance Due Date Last Done Comments Tdap 12/07/1999 Depression screening for age 12+ 2000 HIV for age 15-65 12/07/2003 BMI (ht and wt on same day) for age 18+ 2006 Hepatitis C screening for ag e 18-79 2006 Hepatitis B series for 19+ ( 1 of 3 - 19+ 3-dose series) 12/07/2007 Tetanus booster 2008 Lipids for age 35-44 12/07/2023 COVID-19 vaccine series ( - 2023- season) 2024 Influenza Vaccine (Season Ended) 2025 Pneumococcal series for age 6-49 Aged Out No longer eligible based on patient's age to complete this topic Insurance [employer] OF NON-AR-ITS [employer] NON-AR-ITS Advance Directives * Full Code (Latest Code Status on File) Date Activated Date Inactivated Comments 07/29/2005 8:26 PM 08/02/2005 7:24 PM Care Teams Ship'S Master Relationship Specialty Start Date End Date Nitesh Snider MD [address] [place] [address] PCP - General Internal Medicine 04/14/24
--- OUTSIDE RECORDS SUMMARY | 2024-10-04 09:56 | XMS_ITS | Clinical Summary ---
Author Organization [facility] Address [address] [place] [address] Care Team Providers Care Professor Of Floriculture Name Role Phone Elsewhere, Pcp Primary Care Provider Unavailabl e Source Comments Patient records contain information from all sites at [facility]. For routine questions regarding patient records, call [phone] during business hours, M-F 8:00 AM - 5:00 PM Central Time. Record requests for emergency care only can be directed to [phone] at any time.[facility] Allergies Active Allergy Reactions Criticality Noted Date Comments Amoxicillin Hives only, no other systemic symptoms Medium 08/06/2024 Cefaclor Hives only, no other systemic symptoms Medium 08/06/2024 Erythromycin-Sulfisoxazole Hives only, n o other systemic symptoms Medium 08/06/2024 Penicillins Hives only, no other systemic symptoms High 08/06/2024 Medications * This document contains information received from the source organization and may not represent a complete record from that organization. lisinopriL 10 mg tablet Take 10 mg by mouth daily. Active semaglutide (Ozempic) 1 mg/dose (4 mg/3 mL) injection Inject 1 mg under the skin every 7 (seven) days. Active DULoxetine (Cymbalta) [address] capsule Take 1 capsule (30 mg total) by mouth 2 (two) times a day. 60 capsule 08/10/2024 Active hydrOXYzine (Atarax) 25 mg tablet Take 1 tablet (25 mg total) by mouth every 6 (six) hours as needed for anxiety. 10 tablet 08/10/2024 Active Active Problems Problem Noted Date Diagnosed Date Depression 08/06/2024 Encounters * This document contains information received from the source organization and may not represent a complete record from that organization. Date Type Department Care Team Description 08/07/2024 2:00 PM CDT Ancillary Procedure Department of Wound Ostomy 08/07/2024 1:55 PM CDT Ancillary Procedure Department of Wound Ostomy 08/06/2024 Intake [facility] from Last 3 Months Social History Tobacco Use Types Packs/Day Years Used Date Smoking Tobacco: Former Cigarettes Passive Smoke Exposure: Past Smokeless Tobacco: Current Chew Tobacco Cessation:Counseling Given: Yes [facility] Utilities Answer Date Recorded In the past 12 months has e [employer], oil, or water [employer] threatened to shut off services in your [...] 08/09/2024 PHQ-2 Answer Date Recorded PHQ-2 Score 1 08/11/2024 Hunger Vital Sign Answer Date Recorded Within the past 12 months, y ou worried that your food would run out before you got the money to buy more. Never true 08/10/19 Within the past 12 months, t he [...] Recor ded PHQ-9 Total Score (max 27) 7 08/11 Dental Answer Date Recorded Dental: Regular Dentist Unknown 08/07/19 Housing Stability Answer Date Recorded What is your living situation today? I have a [facility] [place] place to live 08/09/2024 Sex and Gender Information Value Date Recorded Sex Assigned at Not on file Legal Sex Male 3:14 PM CDT Gender Identity Not on file Sexual Orientation Not on file Last Filed Vital Signs Vital Sign Reading Time Taken Comments Blood Pressure 132/76 08/11/2024 7:24 AM CDT Pulse 70 08/11/2024 7:24 AM CDT Temperature 36.2 C (97.2 F) 08/11/2024 7:24 AM CDT Respiratory Rate 18 08/11/2024 7:24 AM CDT Oxygen Saturation 99% 08/11/2024 7:24 AM CDT Inhaled Oxygen Concentration - - Weight 158 kg (348 lb 5.2 oz) 08/06/2024 7:20 PM CDT Height 196 cm (6' 5.17) 08/06/2024 7:20 PM CDT Body Mass Index 41.13 08/06/2024 7:20 PM CDT Plan of Treatment Health Maintenance Due Date Last Done Comments Hepatitis C Screening 1990 DTaP,Tdap,and Td Vaccines (1 - Tdap) 12/07/2007 Hepatitis B Vaccines (1 of 3 - 19+ 3-dose series) 12/07/2007 COVID-19 Vaccine (2023-2 5 season) 2024 Influenza Vaccine (#1) 2024 Depression Screening (Annual PHQ-2) 05/05/2024 Tobacco Cessation counseling 08/06/2025 08/06/2024 Creatinine Level (Kidney Fun ction Test) 08/07/2025 08/07/2024 Potassium Level 08/07/2025 08/07/2024 Sodium Level 08/07/2025 08/07/2024 Lipid (Cholesterol) Screening 08/07/2029 08/07/2024 HPV Vaccines Aged Out No longer eligi ble based on patient's age to complete this topic IPV Vaccines Aged Out No longer eligi ble based on patient's age to complete this topic Pneumococcal vaccine (0-49 years) Aged Out No longer eligible based on patient's age to complete this topic Procedures Procedure Name Priority Date/Time Associated Diagnosis Comments GLUCOSE POCT, B Routine 08/11/2024 7:42 AM CDT GLUCOSE POCT, B Routine 08/10/2024 8:38 PM CDT GLUCOSE POCT, B Routine 08/10/2024 4:50 PM CDT GLUCOSE POCT, B Routine 08/10/2024 11:44 AM CDT GLUCOSE POCT, B Routine 08/10/2024 7:20 AM CDT GLUCOSE POCT, B Routine 08/09/2024 8:01 PM CDT GLUCOSE POCT, B Routine 08/09/2024 4:10 PM CDT GLUCOSE POCT, B Routine 08/09/2024 11:12 AM CDT GLUCOSE POCT, B Routine 08/09/2024 7:11 AM CDT GLUCOSE POCT, B Routine 08/08/2024 9:29 PM CDT GLUCOSE POCT, B Routine 08/08/2024 4:50 PM CDT GLUCOSE POCT, B Routine 08/08/2024 11:08 AM CDT GLUCOSE POCT, B Routine 08/08/2024 7:30 AM CDT GLUCOSE POCT, B Routine 08/07/2024 9:10 PM CDT GLUCOSE POCT, B Routine 08/07/2024 4:42 PM CDT SARS CORONAVIRUS 2, PCR Routine 08/07/2024 4:39 PM CDT WOUND OSTOMY IMAGE EXAM Routine 08/07/2024 1:57 PM CDT WOUND OSTOMY IMAGE EXAM Routine 08/07/2024 1:55 PM CDT ECG Routine 08/07/2024 1:29 PM CDT GLUCOSE POCT, B Routine 08/07/2024 11:27 AM CDT LIPID PANEL, S Routine 08/07/2024 9:44 AM CDT BASIC METABOLIC PANEL, S/P Timed 08/07/2024 9:44 AM CDT HEMOGLOBIN A1C, B Timed 08/07/2024 9:4 4 AM CDT GLUCOSE POCT, B Routine 08/07/2024 7:36 AM CDT from Last 3 Months Results * Glucose, POCT (08/11/2024 7:42 AM CDT) Only the most recent of17 resultswithin the time period is included. Glucose, POCT, B 115 70 - 140 mg/dL 08/11/2024 7:42 AM CDT MKTO Blood 08/11/2024 7:42 AM CDT 08/11/2024 7:49 AM CDT us Generic [facility] LAB POCT ORDERABLES-MANUAL Final Result [facility] [address] [place] [address], [facility] MKTO [facility] [address] [place] [id number] * SARS Coronavirus 2, PCR Symptomatic (08/07/2024 4:39 PM CDT) Pathologist [facility] SARS Coronavirus 2, PCR Undetected Undetected 08/07/2024 5:30 PM CDT MKTO Comment: SARS-CoV-2 RNA absent. This result does not rule out COVID-19 in the patient, as the sensitivity of the test depends on the timing of the specimen collection and the quality of the specimen. Result should be correlated with patient's history and clinical presentation. ----ADDITIONAL INFORMATION---- This RT-PCR test using the Xpert Xpress CoV-2 plus assay ([employer] performed on the [employer] DX systems has received Emergency Use Authorization (EUA) by the U.S. Food and Drug Administration. Performance characteristics were verified by [facility] in a manner consistent with CLIA requirements. Fact sheets for this Emergency Use Authorization (EUA) assay can be found at the following links: For Healthcare Providers: https://www.fda.gov/media/519956/download For Patients: https://www.fda.gov/media/893883/download SARS Coronavirus 2, Source Swab, Nasopharynx 08/07/2024 4:51 PM CDT [facility] Swab (Nasopharynx) 08/07/2024 4:39 PM CDT 08/07/2024 4:51 PM CDT Deandra Dickens LAB MICROBIOLOGY - GENE [facility] ORDERABLES Final Result [facility] [address] [place] [address] [place] [address] * Leg Left Lower Anterior-Wound Ostomy Image Exam (08/07/2024 1:57 PM CDT) Only the most recent of2 resultswithin the time period is included. 08/07/2024 1:54 PM CDT Narrative IIMS - 08/07/2024 1:57 PM CDT This order has been created and auto-finalized to support the import of images acquired without order. The clinical documentation to support these images can be found on the encounter that produced images. us Provider Not In System IMG NON RAD IMAGING PROCE DURES Final Result IIMS NA * ECG 12 Lead (08/07/2024 1:29 PM CDT) Ventricular Rate ECG/Min 67 BPM MUSE CA Interval 168 ms MUSE QRSD Interval 106 ms MUSE QT Interval 434 ms MUSE QTC Interval 458 ms MUSE P [place] 42 degrees MUSE R [place] 59 degrees MUSE T Wave [place] 74 degrees MUSE 08/07/2024 1:29 PM CDT 08/07/2024 3:55 PM CDT Impressions MUSE - 08/07/2024 3:55 PM CDT Normal sinus rhythm Normal ECG No previous ECGs available Reviewed by GABRIEL Serrano Narrative Procedure Note Vamshi Collins M.D. - 08/07/2024 IMPRESSION: Normal sinus rhythm Normal ECG No previous ECGs available Reviewed by GABRIEL Serrano Deandra Dickens ECG ORDERABLES Final R esult MUSE NA * (ABNORMAL) Lipid Panel (08/07/2024 9:44 AM CDT) Triglycerides 338(H) mg/dL 08/07/2024 1:21 PM CDT DEION Comment: ----REFERENCE VALUE---- Normal: <150 mg/dL Borderline High: 150-199 mg/dL High: 200-499 mg/dL Very High: > or =500 mg/dL Cholesterol, Total 184 mg/dL 2024 1:21 PM CDT [facility] Comment: ----REFERENCE VALUE---- Desirable: < 200 mg/dL Borderline High: 200 - 239 mg/dL High: > or = 240 mg/dL Cholesterol, LDL, Calculated 94 mg/dL 08/07/2024 1:21 PM CDT [facility] Comment: ----REFERENCE VALUE---- Desirable: <100 mg/dL Above Desirable: 100-129 mg/dL Borderline High: 130-159 mg/dL High: 160-189 mg/dL Very High: >=190 mg/dL ----ADDITIONAL INFORMATION---- LDL cholesterol calculated using the Kasper/NIH equation. Cholesterol, HDL 34(L) >=40 mg/dL 08/07/2024 1:21 PM CDT [facility] Cholesterol, Non-HDL, Calculated 150 mg/dL 08/07/2024 1:21 PM CDT [facility] Comment: ----REFERENCE VALUE---- Desirable: <130 mg/dL Above Desirable: 130-159 mg/dL Borderline High: 160-189 mg/dL High: 190-219 mg/dL Very High: > or =220 mg/dL Fasting (8 HR or more) Unknown 08/07/2024 1:03 PM CDT [facility] Blood (Blood, Venous) 08/07/2024 9:44 AM CDT 08/07/2024 1:02 PM CDT Deandra Dickens LAB BLOOD ADD-ON Final Result Performing Organization Address [facility] Co de Phone Number [facility] [address] [place] [address] * (ABNORMAL) Hemoglobin A1c (08/07/2024 9:44 AM CDT) Pathologist [facility] Hemoglobin A1c, B 6.2(H) 4.2 - 5.6 % 08/07/2024 10:03 AM CDT [facility] Comment: Hemoglobin A1c values of 5.7-6.4 percent indicate an increased risk for developing diabetes mellitus. In diabetic patients, HbA1c goals should be discussed with healthcare provider. Blood (Blood, Venous) 08/07/2024 9:44 AM CDT 08/07/2024 9:48 AM CDT Aurora Britton M.D. LAB BLOOD ADD-ON Final Resul t Performing Organization Address City/[facility]/ZIP Co de Phone Number [facility] [address] [place] [address] * (ABNORMAL) Basic Metabolic Panel (08/07/2024 9:44 AM CDT) Potassium, P 4.2 3.6 - 5.2 mmol/L 08/07/2024 10:13 AM CDT MKTO Sodium, P 138 135 - 145 mmol/L 08/07/2024 10:13 AM CDT MKTO Chloride, P 105 98 - 107 mmol/L 08/07/2024 10:13 AM CDT MK[facility] Bicarbonate, P 21(L) 22 - 29 mmol/L 08/07/2024 10:13 AM CDT MKTO Anion Gap, P 12 7 - 15 08/07/2024 10:13 AM CDT [facility] BUN (Blood Urea Nitrogen), P 18 8 - 24 mg/dL 08/07/2024 10:13 AM CDT MKTO Creatinine 0.93 0.74 - 1.35 mg/dL 08/07/2024 10:13 AM CDT MKTO Estimated GFR (eGFR) >90 >=60 mL/min/BSA 08/07/2024 10:13 AM CDT MKTO Comment: Estimated GFR calculated using the 2020 CKD_EPI creatinine equation. Calcium, Total, P 9.0 8.6 - 10.0 mg/dL 08/07/2024 10:13 AM CDT MKTO Glucose, P 206(H) 70 - 140 mg/dL 08/07/2024 10:13 AM CDT MKTO Blood (Blood, Venous) 08/07/2024 9:44 AM CDT 08/07/2024 9:48 AM CDT Aurora Britton M.D. LAB BLOOD ADD-ON Final Resul t [facility] [address] [place] [address], [facility] MKTO [facility] [address] [place] [address] from Last 3 Months Insurance [facility] Advance Directives For more information, please contact: [phone] * Full Code (Latest Code Status on File) Date Activated Date Inactivated Comments 08/06/2024 7:54 PM 08/11/2024 12:06 PM Question Answer Comments Full Code: Not Discussed Due to: Patient does not have the [facility] Care Teams Professor Of Floriculture Relationship Specialty Start Date End Date Elsewhere, Pcp PCP - General Internal Medicine 08/08/24
== END 2024-10-04 11:22 | disposition left against medical advice (07) ==
PROVIDERS: Emergency Provider Family Medicine; PCP Internal Medicine
DX: Z53.21 Procedure and treatment not carried out due to patient leaving prior to being seen by health care provider (principal)